=== PATIENT | female | born 1990 | race Caucasian/White ===

== ENCOUNTER 2016-09-29 09:27 | Inpatient (IN) ==
[2016-09-29] MEDS ORDERED: BUTORPHANOL 2 MG/ML VIAL IV PRN (09:39)
[2016-09-29] MEDS ORDERED: LACTATED RINGERS 250 ML IV ONE (09:39)
[2016-09-29] MEDS ORDERED: ONDANSETRON 4 MG/2 ML VIAL IV PRN (09:39)
[2016-09-29] MEDS ORDERED: PROMETHAZINE 25 MG/1 ML VIAL IM ONE (09:42)
[2016-09-29] MEDS ORDERED: CITRIC ACID/SODIUM CITRATE 30 ML UDCUP PO ONE (09:42)
[2016-09-29] MEDS ORDERED: fentaNYL 2 MCG/ROPIV 0.2% EPID 150 ML EPIDURAL SCH (09:42)
[2016-09-29] MEDS ORDERED: ePHEDrine 50 MG/ML AMP IV PRN (09:42)
[2016-09-29] MEDS ORDERED: diphenhydrAMINE 50 MG/1 ML VIAL IV PRN ×2 (09:42)
[2016-09-29] MEDS ORDERED: hydrOXYzine HCL 25 MG/1 ML VIAL IM PRN (09:42)
[2016-09-29] MEDS ORDERED: FAMOTIDINE 20 MG/2 ML VIAL IV ONE (09:42)
[2016-09-29] MEDS ORDERED: LACTATED RINGERS 250 ML IV PRN (09:42)
[2016-09-29] MEDS ORDERED: LACTATED RINGERS 1,000 ML IV ONE (09:42)
[2016-09-29 09:56] LABS: Basophils % 0.2 % (0.0-0.8); Eosinophils # 0.1 10*3/uL (0.0-0.87); Eosinophils % 0.4 % (0.00-10.9); Hematocrit 36.9 VOL% (35.7-47.0); Hemoglobin 12.8 GM/DL (12.0-16.0); Immature Granulocytes % 0.9 %; Lymphocytes # 2.4 10*3/uL (1.4-4.0); Lymphocytes % 20.4 % (21.3-54.2); Mean Corpuscular HGB Conc 34.7 GM/DL (32-36); Mean Corpuscular Hemoglobin 28 PG (27-34); Mean Platelet Volume 11.9 FL (9.6-12.0); Monocytes # 0.6 10*3/uL (0.11-0.8); Monocytes % 4.9 % (1.7-12.7); Neutrophils # 8.6 10*3/uL (1.4-7.4); Neutrophils % 73.2 % (38.7-73.9); Platelet Count 193 T/CUMM (130-400); Red Blood Count 4.61 MC/CUMM (3.8-5.5); Red Cell Distribution Width 12.4 % (9.3-17.3); White Blood Count 11.7 T/CUMM (4-12)
[2016-09-29] MEDS ORDERED: LACTATED RINGERS 1,000 ML IV SCH ×3 (10:00)
[2016-09-29] MEDS ORDERED: OXYTOCIN/LR 20 UNIT/1,000 ML BAG IV SCH (10:00)
[2016-09-29] MEDS ORDERED: OXYTOCIN/LR 20 UNIT/1,000 ML BAG IV ONE ×2 (10:35→15:08)
--- NOTE | 2016-09-29 13:14 | OB/GYN History & Physical ---
History of Present Illness Chief complaint: contractions, SROM History of present illness: Ms. Bustillo is a 25 year old female at 38+ weeks who presented with severe contractions and spontaneous rupture of membranes. She has had no issues with her care and she has had a prior vaginal delivery without complications. Home Medications Medication Instructions Recorded Confirmed Type Vits #90/Iron Fum/FA 1 tablet PO DIRECTED 09/21/16 09/21/16 History [ Formula Tablet] Allergies Allergy/AdvReac Type Severity Reaction Status Date / Time No Known Allergies Allergy Verified 09/21/16 20:01 Medical,Surgical,& Family Hx - Medical History Psychological: No history of: Anxiety Disorders, ADHD Reproductive: No history of: Ectopic , Complication - Surgical History Thoracic Surgeries: Patient denies;: Lobectomy Neurologic Surgeries: Patient denies: Neurologic Surgery Reproductive Surgeries: Patient denies;: Section - Family History Family History: Reports;: Family Cancer (mother skin cancer), Family Diabetes ( MGF), Family Heart Disease (PGM), Family Hypertension (father), Additional Family History (MGM lung) Denies;: Family Anesthesia Reaction, Family Hematology, Family Psychiatric Problems, Family Stroke - Social History Smoking Status: Never smoker Frequency of Alcohol Use: None Type of Drug Use: None 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 admit with expectant management Current Visit: Yes Results - Labs CBC & BMP: 09/29/16 09:39 Quality Measures - VTE Contraindication to Pharmacological VTE Prophylaxis: Clinical assessment deems Pt at low risk, no prophalaxis needed
--- NOTE | 2016-09-29 13:18 | Operative Note ---
Date of procedure: 09/29/16 Pre-op diagnosis: Active labor at 38+ weeks Post-op diagnosis: same Procedure: The patient came in in active labor and spontaneous rupture of membranes shortly after admission she progressed to completely dilated she pushed and delivered a viable infant female with Apgars 8 and 9 weight was pending at the time of this dictation over a midline episiotomy. The episiotomy was repaired using 3-0 Vicryl in the usual fashion. The placenta delivered spontaneously shortly after the repair. Sponge lap and instrument counts were correct 3. No complications. Anesthesia: epidural Surgeon / Physician: Rina Griffith Estimated blood loss: other (200) Specimens: none sent Condition: stable Results - Labs CBC & BMP: 09/29/16 09:39 Discharge Plan - Discharge Medications No Action Vits #90/Iron Fum/FA [ Formula Tablet] 1 tablet PO DIRECTED - Follow Up or Referral - Forms/Instructions
[2016-09-29] MEDS ORDERED: BENZOCAINE 20%/MENTHOL 0.5% SPRAY 56 GM CAN TOP PRN (15:08)
[2016-09-29] MEDS ORDERED: DIPH/TET/ACEL PERT BOOSTER VACCINE 0.5 ML VIAL IM ONE (15:08)
[2016-09-29] MEDS ORDERED: LANOLIN 50% CREAM 0.3 OZ TUBE TOP PRN (15:08)
[2016-09-29] MEDS ORDERED: MEASLES/MUMPS/RUBELLA VACCINE 0.5 ML VIAL SUBCUT ONE (15:08)
[2016-09-29] MEDS ORDERED: WITCH HAZEL PADS 100/JAR TOP PRN (15:08)
[2016-09-29] MEDS ORDERED: HYDROCORTISONE 2.5% RECTAL CREAM 30 GM TUBE TOP PRN (15:08)
[2016-09-29] MEDS ORDERED: oxyCODONE/ACETAMINOPHEN 5-325 MG TABLET PO PRN (15:08)
[2016-09-29] MEDS ORDERED: BISACODYL 10 MG SUPP RECTAL PRN (15:08)
[2016-09-29] MEDS ORDERED: RHO(D) IMMUNE GLOBULIN 300 MCG SYRINGE IM ONE (15:08)
[2016-09-29] MEDS ORDERED: ACETAMINOPHEN 325 MG TABLET PO PRN (15:08)
[2016-09-29] MEDS: IBUPROFEN 800 MG TABLET PO PRN ×2 (16:31→22:15)
[2016-09-29] MEDS: DOCUSATE SODIUM 100 MG CAPSULE PO SCH (22:12)
[2016-09-29] MEDS: oxyCODONE/ACETAMINOPHEN 5-325 MG TABLET PO PRN (22:15)
--- NOTE | 2016-09-30 06:59 | Anesthesia Post-Op ---
Anesthesia Post OP - Post Ansesthetic Evaluation Patient seen in post op: Yes Resp: within normal limits CV: within normal limits Mental: within normal limits Temp: within normal limits [id number]: within normal limits Nausea and Vomiting: within normal limits Pain: within normal limits
[2016-09-30 07:28] LABS: Basophils % 0.2 % (0.0-0.8); Eosinophils # 0.1 10*3/uL (0.0-0.87); Eosinophils % 0.7 % (0.00-10.9); Hematocrit 28.8 VOL% (35.7-47.0); Immature Granulocytes % 0.6 %; Immature Granulocytes Absolute 0.07 #; Lymphocytes # 2.8 10*3/uL (1.4-4.0); Lymphocytes % 22.6 % (21.3-54.2); Mean Corpuscular HGB Conc 33.3 GM/DL (32-36); Mean Corpuscular Hemoglobin 27 PG (27-34); Mean Corpuscular Volume 82.3 FL (87-102); Mean Platelet Volume 11.8 FL (9.6-12.0); Monocytes # 0.7 10*3/uL (0.11-0.8); Monocytes % 5.9 % (1.7-12.7); Neutrophils # 8.6 10*3/uL (1.4-7.4); Red Cell Distribution Width 12.5 % (9.3-17.3); White Blood Count 12.3 T/CUMM (4-12)
[2016-09-30 07:31] LABS: Hemoglobin 9.6 GM/DL (12.0-16.0); Platelet Count 135 T/CUMM (130-400)
[2016-09-30] MEDS: oxyCODONE/ACETAMINOPHEN 5-325 MG TABLET PO PRN ×2 (09:45→18:55)
[2016-09-30] MEDS: DOCUSATE SODIUM 100 MG CAPSULE PO SCH ×2 (09:45→20:39)
[2016-09-30] MEDS: IBUPROFEN 800 MG TABLET PO PRN ×2 (09:45→18:05)
--- NOTE | 2016-09-30 12:45 | OB/GYN Progress Note ---
Assessment and Plan (1) with 38 completed weeks gestation Status: Acute Assessment and plan: PPD#1 s/p SAVD . 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 The patient has no complaints. 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 - Constitutional Vitals: Vital Signs Temp Pulse Resp BP BP Pulse Ox 09/30/16 11:21 97.6 F 68 17 140/91 131/83 96 09/30/16 08:00 97.4 F L 56 L 18 129/73 98 09/30/16 04:00 97.2 F L 69 18 138/93 97 09/30/16 02:00 18 09/30/16 00:00 96.7 F L 63 18 134/76 96 09/29/16 19:54 97.9 F 71 18 128/80 97 09/29/16 18:00 74 20 127/76 99 09/29/16 17:00 70 20 128/75 98 09/29/16 16:00 69 20 127/76 98 09/29/16 15:30 77 20 132/72 98 09/29/16 15:00 97.9 F 66 20 124/76 98 General appearance: normal weight, no acute distress - Respiratory Respiratory exam: Absent: accessory muscle use - Cardiovascular Cardiovascular exam: Present: regular rate and rhythm - GI/Abdominal GI/Abdominal exam: Absent: guarding, tenderness, rebound - Extremities Exam Extremities exam: Absent: calf tenderness - Neurological Exam Neurological exam: Present: alert, oriented X3 Results - Labs CBC & BMP: 09/30/16 06:47
[2016-10-01] MEDS: IBUPROFEN 800 MG TABLET PO PRN (06:02)
[2016-10-01 07:15] VITALS: BP 125/74
--- NOTE | 2016-10-01 08:36 | Discharge Summary ---
Hospital Course - Hospital Course Hospital Course: Th ept was admitted at 38 + weeks in active labor. She delivered spontaneously without complications and her hospital course was also uneventful . She was discharged on PPD#2 . Diagnosis - Discharge Diagnosis (1) with 38 completed weeks gestation Status: Acute Specialty Discharge - Follow Up or Referrals Follow up with: Rina Griffith MD [Primary Care Provider] - (6 weeks) Discharge Plan - Discharge Data Disposition: Disch To Home/Self Care Condition at Discharge: Stable Discharge Diet: advance to your usual diet Activity: resume usual activities as tolerated Hygiene: may shower Weight Bearing at Discharge: full weight bearing Driving: no restrictions Contact your physician if you experience:: fever over 101, Difficulty voiding, Redness or swelling, Nausea/Vomiting, Shortness of breath, Bleeding, pain uncontrolled by pain medications - Discharge Medications New oxyCODONE/ACETAMINOPHEN 5-325 [Percocet 5-325] 1 tablet PO Q6H PRN #20 tablet PRN Reason: Abdominal Pain No Action Vits #90/Iron Fum/FA [ Formula Tablet] 1 tablet PO DIRECTED - Follow Up or Referral - Forms/Instructions Exam - Constitutional Vitals: Period Temp Pulse Resp BP Sys/Schaeffer Pulse Ox Last 24 Hr 96.6 F-98.5 F 61-72 16-20 121-140/70-91 96-98 General appearance: normal weight, no acute distress - Respiratory Respiratory exam: Absent: accessory muscle use - Cardiovascular Cardiovascular exam: Present: regular rate and rhythm - GI/Abdominal GI/Abdominal exam: Absent: guarding, tenderness, rebound - Extremities Exam Extremities exam: Absent: calf tenderness - Neurological Exam Neurological exam: Present: alert, oriented X3 - Psychiatric Psychiatric exam: Present: normal affect, normal mood - Skin Skin exam: Present: normal color, warm DS: Provider Date of admission: 09/29/16 09:39 Primary care physician: Rina Koch- Attending physician on admission: Rina Koch- Consults: 09/29/16 09:39 Consult to Anesthesiology [CONS] Routine Consulting Provider: Reason for Anesthesiology: Epidural Consult Comment: Epidural for pain managment 09/29/16 15:08 Consult to Electrical Solderer [CONS] Routine Consult Electrical Solderer: Breast Feeding Discharging clinician: Rina Koch- Expected date of discharge: 10/01/16
[2016-10-01] MEDS: DOCUSATE SODIUM 100 MG CAPSULE PO SCH (08:48)
== END 2016-10-01 11:45 | disposition home or self-care (01) | DRG 775 ==
LOC: N.LDOUT 09:27 → N.LD 09:29 → N.OB 14:51
PROVIDERS: ADMIT Obstetrics & Gynecology; ATTEND Obstetrics & Gynecology